=== PATIENT | male | born 1955 | race Caucasian/White ===

== ENCOUNTER 2017-06-13 07:47 | Emergency (ER) | payer BC ==
[~2017-06-13] VITALS: Ht 175.3 cm; Wt 95.0 kg
[~2017-06-13 07:47] MED LIST: ASPI-664 PO; BENA40TA41 PO; CIPR500T4 PO; GLYB5TAB3 PO; HYDR12.58 PO; METF1000 PO; METO-407 PO
[2017-06-13 07:51] VITALS: Ht 175.3 cm; Wt 95.0 kg
[2017-06-13] MEDS ORDERED: SOD CHLORIDE 0.9% 1,000 ML IV STA (08:06)
[2017-06-13] MEDS ORDERED: ONDANSETRON 4 MG INJ IV STA (08:06)
--- NOTE | 2017-06-13 08:54 | ERD ---
ER Documentation Chief Complaint Chief Complaint sudden onset dizziness with change in position HPI 62-year-old man presents with dizziness and an episode of hypertension. He has a long history of hypertension and states he used his metoprolol and benazepril as prescribed today. He denies loss of consciousness, and states he has had similar episodes with hypertension. He denies blurry vision, no chest pain or shortness of breath, no recent fevers or chills, no vomiting or diarrhea. States he felt nauseous. ROS All systems reviewed and are negative except as per history of present illness. Medications Home Meds Reported Medications Hydrochlorothiazide* (Hydrochlorothiazide*) 25 Mg Tab, 25 MG PO DAILY, #30 TAB 06/13/17 Metformin Hcl* (Metformin Hcl*) 1,000 Mg Tablet, 1000 MG PO WITH BREAKFAST DINNE , #60 TAB 02/08/17 Aspirin* (Aspirin* EC) 81 Mg Tablet.dr, 81 MG PO DAILY, TAB 02/08/17 Benazepril Hcl* (Benazepril Hcl*) 40 Mg Tablet, 40 MG PO BID, #30 TAB 02/08/17 Metoprolol Tartrate* (Lopressor*) 100 Mg Tablet, 200 MG PO BID, #60 TAB 02/08/17 Discontinued Reported Medications Hydrochlorothiazide* (Hydrochlorothiazide*) 12.5 Mg Tablet, 12.5 MG PO DAILY, # 30 TAB 02/08/17 Glyburide* (Glyburide*) 5 Mg Tablet, 10 MG PO BID, TAB 01/01/15 Discontinued Scripts Ciprofloxacin Hcl* (Ciprofloxacin Hcl*) 500 Mg Tablet, 500 MG PO BID for 3 Days , TAB Prov:ASHLEY JAEGER MD 02/08/17 Allergies Allergies: Coded Allergies: No Known Allergy (Unverified , 06/13/17) PMhx/Soc Hypertension, CAD, diabetes mellitus History of Surgery: Yes (L4-L5 DISK. R KNEE,CHOLECTOMY ) Anesthesia Reaction: No Hx Neurological Disorder: No Hx Respiratory Disorders: No Hx Cardiac Disorders: Yes (HTN, HIGH TRIGLYCERIDES) Hx Psychiatric Problems: No Hx Miscellaneous Medical Probl: Yes (DM) Hx Alcohol Use: Yes Hx Substance Use: No Hx Tobacco Use: No Smoking Status: Former smoker FmHx Family History: No diabetes Physical Exam Vitals Vital Signs Date Time Temp Pulse Resp B/P Pulse Ox O2 Delivery O2 Flow Rate FiO2 06/13/17 09:56 66 18 132/76 98 Room Air 06/13/17 07:51 97.5 65 22 199/112 99 Physical Exam GENERAL: Well-developed, well-nourished, well-hydrated, in no apparent distress , looks nontoxic in appearance HEENT: Moist mucous membranes, pink conjunctiva, no cervical spine tenderness or step-off deformities, no goiter, no jaundice or icterus, extraocular movements intact without pain. No submandibular induration, and no pharyngeal erythema NEURO: Alert and oriented 3, cranial nerves II through XII intact bilaterally, pupils equal round reactive to light, no focal deficits or facial asymmetry, sensation intact distally Strength 5/5 in upper and lower extremities bilaterally CARDIAC: Regular rate and rhythm, no murmurs rubs or gallops LUNGS: Clear bilaterally no wheezing crackles or stridor ABDOMEN: Soft nontender, no guarding, no rigidity, no rebound, no psoas sign no obturator sign. Normoactive bowel sounds SKIN: Warm and dry to touch, no abrasions, contusions, or hematomas, no lacerations, no ecchymosis, no target lesions, and without ulcers EXTREMITIES: No clubbing cyanosis or edema, calves are bilaterally symmetrical, no Homans sign, no popliteal cord sign. Distal pulses equal and bilateral PSYCH: Normal affect without agitation or irritability Result Diagram: 06/13/17 0817 06/13/17 0817 Results 24 hrs Laboratory Tests Test 06/13/17 07:59 06/13/17 08:17 Bedside Glucose 240mg/dL White Blood Count 5.910^3/ul Red Blood Count 4.3710^6/ul Hemoglobin 13.0g/dl Hematocrit 37.3% Mean Corpuscular Volume 85.4fl Mean Corpuscular Hemoglobin 29.7pg Mean Corpuscular Hemoglobin Concent 34.9g/dl Red Cell Distribution Width 13.2% Platelet Count 93200^3/UL Mean Platelet Volume 11.7fl Neutrophils % 51.5% Lymphocytes % 39.8% Monocytes % 5.1% Eosinophils % 2.6% Basophils % 0.7% Nucleated Red Blood Cells % 0.0/100WBC Neutrophils # 3.010^3/ul Lymphocytes # 2.310^3/ul Monocytes # 0.310^3/ul Eosinophils # 0.210^3/ul Basophils # 0.010^3/ul Nucleated Red Blood Cells # 0.010^3/ul Sodium Level 141mmol/L Potassium Level 4.0mmol/L Chloride Level 101mmol/L Carbon Dioxide Level 26mmol/L Anion Gap 18 Blood Urea Nitrogen 19mg/dl Creatinine 0.69mg/dl Glucose Level 265mg/dl Calcium Level 9.8mg/dl Total Bilirubin 0.7mg/dl Direct Bilirubin 0.00mg/dl Indirect Bilirubin 0.7mg/dl Aspartate Amino Transf (AST/SGOT) 52IU/L Alanine Aminotransferase (ALT/SGPT) 44IU/L Alkaline Phosphatase 168IU/L Troponin I < 0.012ng/ml Total Protein 7.6g/dl Albumin 4.3g/dl Globulin 3.30g/dl Albumin/Globulin Ratio 1.30 Lipase 101U/L Current Medications Medications (Trade) Dose Ordered Sig/Susan Route PRN Reason Start Time Stop Time Status Last Admin Dose Admin Clonidine 0.1 mg 0.1 mg ONCE ONCE PO 06/13/17 08:30 06/13/17 08:31 DC 06/13/17 08:23 Sodium Chloride (NS) 1,000 ml @ 1,000 mls/hr Q1H STAT IV 06/13/17 08:06 06/13/17 09:05 DC 06/13/17 08:22 Ondansetron HCl (Zofran Inj) 4 mg ONCE STAT IV 06/13/17 08:06 06/13/17 08:08 DC 06/13/17 08:23 Procedures/MDM IV line was established patient was placed on engine monitor rhythm strip revealed a sinus rhythm at about 60 bpm with upright P and T waves. Patient was afebrile I administered 1 L normal saline intravenously and clonidine 0.1 mg p.o. for hypertension. Patient also received Zofran 4 mg IV for nausea. EKG performed, read by me revealed a sinus bradycardia 59 bpm, normal axis, narrow QRS complex, no concerning ST elevations or depressions noted. CBC and electrolytes were normal, liver function tests were normal, troponin was negative. Patient systolic and diastolic blood pressures fell about 30 points, patient is asymptomatic at this time and appears well. He has no complaints and will be discharged for follow-up with PMD. Differential diagnoses considered, included but not limited to acute coronary syndrome, pulmonary embolism, aortic dissection, abdominal aortic aneurysm, sepsis, stroke, meningitis, encephalitis, pneumonia, appendicitis, cholecystitis , bowel obstruction, pyelonephritis, nephrolithiasis, cystitis, as well as metabolic, hematologic, and electrolyte abnormalities. As well as abscess, cellulitis, fractures, and dislocations. Patient feels much better at this time, and vital signs are normal, symptoms have improved. I did give strict instructions to return to the ED if symptoms continue or worsen, patient will otherwise follow-up with primary care physician. Patient understood instructions and agreed to plan. Disclaimer: Inadvertent spelling and grammatical errors are likely due to EHR/ dictation software use and do not reflect on the overall quality of patient care. Also, please note that the electronic time recorded on this note does not necessarily reflect the actual time of the patient encounter. Departure Diagnosis: Primary Impression: Dizziness Additional Impression: Hypertension Hypertension type: essential hypertension Qualified Code: I10 - Essential hypertension Condition: ASHLEY Vasquez MD Jun 13, 2017 08:54
[2017-06-13 09:05] LABS: BASOPHILS % 0.7 % (0.0-2.0); EOSINOPHILS # 0.2 10^3/ul (0.0-0.5); EOSINOPHILS % 2.6 % (0.0-7.0); HEMATOCRIT 37.3 % (42.0-52.0); LYMPHOCYTES # 2.3 10^3/ul (0.8-2.9); LYMPHOCYTES % 39.8 % (15.0-51.0); MEAN CORPUSCULAR HEMOGLOBIN 29.7 pg (29.0-33.0); MEAN CORPUSCULAR HGB CONC 34.9 g/dl (32.0-37.0); MEAN CORPUSCULAR VOLUME 85.4 fl (82.0-101.0); MEAN PLATELET VOLUME 11.7 fl (7.4-10.4); MONOCYTE # 0.3 10^3/ul (0.3-0.9); MONOCYTES % 5.1 % (0.0-11.0); NEUTROPHILS % 51.5 % (39.0-77.0); PLATELET COUNT 132 10^3/UL (140-415); RED BLOOD COUNT 4.37 10^6/ul (4.70-6.10); RED CELL DISTRIBUTION WIDTH 13.2 % (11.5-14.5); WHITE BLOOD COUNT 5.9 10^3/ul (4.8-10.8)
[2017-06-13] MEDS ORDERED: HYDR25TA6 PO (09:20)
[2017-06-13 09:31] LABS: ALANINE AMINOTRANSFERASE 44 IU/L (13-69); ALBUMIN 4.3 g/dl (3.3-4.9); ALKALINE PHOSPHATASE 168 IU/L (42-121); ANION GAP 18 (8-16); ASPARTATE AMINO TRANSFERASE 52 IU/L (15-46); BILIRUBIN,INDIRECT 0.7 mg/dl (0-1.1); BILIRUBIN,TOTAL 0.7 mg/dl (0.2-1.3); BLOOD UREA NITROGEN 19 mg/dl (7-20); CALCIUM 9.8 mg/dl (8.4-10.2); CARBON DIOXIDE 26 mmol/L (21-31); CHLORIDE 101 mmol/L (97-110); CREATININE 0.69 mg/dl (0.61-1.24); GLUCOSE 265 mg/dl (70-220); SODIUM 141 mmol/L (135-144); TOTAL PROTEIN 7.6 g/dl (6.1-8.1)
[2017-06-13 09:43] LABS: TROPONIN-I < 0.012 ng/ml (0.00-0.12)
[2017-06-13 09:56] VITALS: BP 132/76; PULSE 66; RESP 18
== END 2017-06-13 10:21 | disposition home or self-care (01) ==
LOC: E/R 07:47
DX: R42 Dizziness and giddiness (principal); I10 Essential (primary) hypertension; E11.9 Type 2 diabetes mellitus without complications; I25.10 Atherosclerotic heart disease of native coronary artery without angina pectoris; Z87.891 Personal history of nicotine dependence
CPT/HCPCS: 36415; 80053; 82962; 83690; 84484; 85025; 93005; 96374; 99284; J2405; J7030